=== PATIENT | male | born 1935 | race Caucasian/White ===

== ENCOUNTER 2018-05-02 09:39 | Outpatient (REF) | payer BC, SELFPAY ==
[2018-05-02 21:36] LABS: INR 3.7 (0.9-1.1); Prothrombin Time 37.4 sec (9.3-11.0)
== END 2018-05-02 09:59 ==
LOC: NCHCN 09:39
PROVIDERS: PCP Family Medicine; Visit Provider Family Medicine
DX: I48.91 Unspecified atrial fibrillation (principal); Z79.01 Long term (current) use of anticoagulants
CPT/HCPCS: 85610

== ENCOUNTER 2018-05-30 12:04 | Outpatient (REF) | payer BC, SELFPAY ==
[2018-05-30 21:06] LABS: Anion Gap 9.2 mmol/L (3-11); BUN 20 mg/dL (7-18); CO2 29.8 mmol/L (21.0-32.0); CREATININE 0.97 mg/dL (0.70-1.30); Calcium 9.1 mg/dL (8.5-10.1); Chloride 99 mmol/L (98-107); Glucose 94 mg/dL (70-100); Potassium 3.6 mmol/L (3.5-5.1); Sodium 138 mmol/L (136-145)
[2018-05-30 21:17] LABS: Abs Immature Grans 0.03 k/cumm (0.0-0.09); Absolute Basophil Count 0.01 k/cumm (0.0-0.2); Absolute Eosinophil Count 0.13 k/cumm (0.0-0.7); Absolute Lymphocyte Count 1.18 k/cumm (1.2-3.4); Absolute Monocyte Count 0.94 k/cumm (0.11-0.7); Absolute Neutrophil Count 5.73 k/cumm (1.2-6.7); Basophils % 0.1; Eosinophils % 1.6; HCT 38.3 % (40.0-50.0); HGB 13.1 g/dL (13.5-17.5); Immature Grans % 0.4; Lymphocytes % 14.7; Mean Corp. HGB Concentration 34.2 g/dL (32.0-36.0); Mean Corpuscular Hemoglobin 27.8 pg (27.0-33.0); Mean Corpuscular Volume 81.3 fL (80-95); Mean Platelet Volume 10.5 fL (8.0-11.0); Monocytes % 11.7; Neutrophils % 71.5; Platelet Count 163 x1000/uL (130-400); RBC 4.71 m/cumm (4.50-6.00); White Blood Cell Count 8.02 k/cumm (4.4-10.8)
[2018-05-30 22:24] LABS: ESR 31 MM/HR (1-20)
== END 2018-05-30 12:24 ==
LOC: NCHCN 12:04
PROVIDERS: PCP Family Medicine; Visit Provider Family Medicine
DX: E87.1 Hypo-osmolality and hyponatremia (principal); M62.81 Muscle weakness (generalized)
CPT/HCPCS: 80048; 85652; 85025

== ENCOUNTER 2018-07-18 10:11 | Outpatient (REF) | payer BC, SELFPAY ==
[2018-07-18 20:30] LABS: Glucose 114 mg/dL (70-100)
[2018-07-18 20:48] LABS: ESR 9 MM/HR (1-20)
== END 2018-07-18 10:31 ==
LOC: NCHCN 10:11
PROVIDERS: PCP Family Medicine; Visit Provider Family Medicine
DX: M35.3 Polymyalgia rheumatica (principal); Z79.51 Long term (current) use of inhaled steroids
CPT/HCPCS: 82947; 85652

== ENCOUNTER 2018-08-29 22:04 | Outpatient (REF) | payer BC, SELFPAY ==
[2018-08-29 21:42] LABS: ESR 18 MM/HR (1-20)
== END 2018-08-29 22:24 ==
LOC: NCHCN 22:04
PROVIDERS: PCP Family Medicine; Visit Provider Family Medicine
DX: M35.3 Polymyalgia rheumatica (principal)
CPT/HCPCS: 85652

== ENCOUNTER 2019-08-07 12:33 | Outpatient (REF) | payer BC, SELFPAY ==
[2019-08-07 21:07] LABS: TSH 0.41 uIU/mL (0.36-3.74)
== END 2019-08-07 12:53 ==
LOC: NCHCN 12:33
PROVIDERS: PCP Family Medicine; Visit Provider Family Medicine
DX: E03.9 Hypothyroidism, unspecified (principal)
CPT/HCPCS: 84443

== ENCOUNTER 2019-10-27 12:08 | Outpatient (REF) | payer BC, SELFPAY ==
[2019-10-27 21:28] LABS: Abs Immature Grans 0.03 10^3/uL (0.0-0.06); Absolute Basophil Count 0.02 10^3/uL (0.0-0.2); Absolute Eosinophil Count 0.12 10^3/uL (0.0-0.7); Absolute Lymphocyte Count 1.36 10^3/uL (1.2-3.4); Absolute Monocyte Count 0.98 10^3/uL (0.1-0.8); Absolute Neutrophil Count 5.54 10^3/uL (1.2-6.7); Basophils % 0.2; Eosinophils % 1.5; HCT 35.3 % (40.0-50.0); HGB 11.4 g/dL (13.5-17.5); Immature Grans % 0.4; Lymphocytes % 16.9; MCH 27.6 pg (27.0-33.0); MCHC 32.3 % (32.0-36.0); MCV 85.5 fL (80-95); MPV 11.1 fL (8.0-11.0); Monocytes % 12.2; Neutrophils % 68.8; Platelet Count 160 10^3/uL (130-400); RBC 4.13 10^6/uL (4.36-5.78); RDW 13.7 % (11.8-14.1); RDW-SD 42.7 fL; WBC 8.05 10^3/uL (4.4-10.8)
[2019-10-27 21:54] LABS: ALT 21 U/L (16-63); AST 18 U/L (15-37); Albumin 3.8 g/dL (3.4-5.0); Alkaline Phosphatase 55 U/L (46-116); Anion Gap 10.6 mmol/L (3-11); BUN 24 mg/dL (7-18); Bilirubin, Total 0.8 mg/dL (0.2-1.0); CO2 27.4 mmol/L (21.0-32.0); CREATININE 0.99 mg/dL (0.70-1.30); Calcium 8.9 mg/dL (8.5-10.1); Chloride 100 mmol/L (98-107); Glucose 117 mg/dL (74-106); Potassium 3.4 mmol/L (3.5-5.1); Sodium 138 mmol/L (136-145); Total Protein 6.9 g/dL (6.4-8.2)
[2019-10-27 22:04] LABS: ESR 37 mm/hr (1-20)
== END 2019-10-27 12:28 ==
LOC: NCHCN 12:08
PROVIDERS: PCP Family Medicine; Visit Provider Family Medicine
DX: Z79.01 Long term (current) use of anticoagulants (principal); I10 Essential (primary) hypertension
CPT/HCPCS: 80053; 85652; 85025

== ENCOUNTER 2019-12-04 09:38 | Outpatient (REF) | payer BC, SELFPAY ==
[2019-12-04 21:58] LABS: ESR 10 mm/hr (1-20)
== END 2019-12-04 09:58 ==
LOC: NCHCN 09:38
PROVIDERS: PCP Family Medicine; Visit Provider Family Medicine
DX: R53.83 Other fatigue (principal); M79.604 Pain in right leg; M79.605 Pain in left leg
CPT/HCPCS: 85652

== ENCOUNTER 2019-12-29 16:44 | Outpatient (REF) | payer BC, SELFPAY ==
[2019-12-29 20:52] LABS: Anion Gap 9.2 mmol/L (3-11); BUN 16 mg/dL (7-18); CO2 25.8 mmol/L (21.0-32.0); CREATININE 0.87 mg/dL (0.70-1.30); Chloride 99 mmol/L (98-107); Glucose 139 mg/dL (74-106); Potassium 4.2 mmol/L (3.5-5.1); Sodium 134 mmol/L (136-145)
[2019-12-29 20:55] LABS: Hemoglobin A1C 6.3 % (<5.7)
== END 2019-12-29 17:04 ==
LOC: NCHCN 16:44
PROVIDERS: PCP Family Medicine; Visit Provider Family Medicine
DX: R73.09 Other abnormal glucose (principal); I10 Essential (primary) hypertension; Z86.39 Personal history of other endocrine, nutritional and metabolic disease
CPT/HCPCS: 80048; 83036

== ENCOUNTER 2020-01-29 09:31 | Outpatient (REF) | payer BC, SELFPAY | END 2020-01-29 09:51 | LOC: NCHCN 09:31 | PROVIDERS: PCP Family Medicine; Visit Provider Family Medicine | DX: R73.09 Other abnormal glucose (principal); I10 Essential (primary) hypertension; E87.1 Hypo-osmolality and hyponatremia | CPT/HCPCS: 80048; 83036 ==

== ENCOUNTER 2020-03-01 12:45 | Outpatient (REF) | payer BC, SELFPAY ==
[2020-03-01 22:24] LABS: Anion Gap 6.7 mmol/L (3-11); BUN 20 mg/dL (7-18); CO2 29.3 mmol/L (21.0-32.0); CREATININE 0.98 mg/dL (0.70-1.30); Chloride 103 mmol/L (98-107); Glucose 140 mg/dL (74-106); Sodium 139 mmol/L (136-145)
== END 2020-03-01 13:05 ==
LOC: NCHCN 12:45
PROVIDERS: PCP Family Medicine; Visit Provider Nurse Practitioner Family
DX: I10 Essential (primary) hypertension (principal)
CPT/HCPCS: 80048